=== PATIENT | female | born 1960 | race Caucasian/White ===

== ENCOUNTER 2021-12-04 13:44 | Outpatient (CLI) | payer OTHER, SELFPAY ==
[2021-12-04 14:57] LABS: Basophils % 0.6 %; Eosinophils # 0.2 10^3/uL (0.0-0.8); Eosinophils % 3.3 %; Hematocrit 34.7 % (37.0-47.0); Hemoglobin 9.9 g/dL (11.5-15.3); Lymphocytes # 1.7 10^3/uL (0.8-4.8); Lymphocytes % 24.8 %; Mean Corpuscular HGB Conc 28.5 g/dL (30.0-36.0); Mean Corpuscular Hemoglobin 22.8 pg (28.0-34.0); Mean Corpuscular Volume 79.8 fl (81-99); Mean Platelet Volume 11.8 fL (7.4-10.4); Monocytes # 0.5 10^3/uL (0.2-0.9); Monocytes % 7.7 %; Neutrophils # 4.22 10^3/uL (1.8-7.7); Neutrophils % 63.3 %; Nucleated Red Blood Cells % 0 %; Platelet Count 216 10^3/cmm (130-400); Red Blood Count 4.35 10^6/uL (4.1-5.3); Red Cell Distribution Width 19.1 % (12.1-15.1); White Blood Count 6.7 10^3/uL (4.0-10.0)
[2021-12-04] MEDS: cyanocobalamin 1,000 mcg/mL SDV 1000 MCG IM (16:30)
[2021-12-04 17:17] LABS: Ferritin 8 ng/mL (15-150); Iron 27 ug/dL (37-145); Percent Saturation 7.2 % (20-50); Total Iron Binding Capacity 370 mcg/dl; Unsaturated Iron Binding 343 ug/dL (112-347)
[2021-12-04 17:28] LABS: Vitamin B12 193 pg/mL (232-1245)
--- NOTE | 2021-12-06 17:34 | ONC FU_ITS ---
Dr. Desir follow up note Patient: Svetlana Jackson Unit #: [id number]: 1960 Dicatated By: Kelly Desir M.D.Date of Visit:Dec 04, 2021 Onc Med Follow-up/Prog Note History of Present Illness: Ms. Svetlana jackson, is a 61-year-old female with a history of iron deficiency anemia since teenage, as per patient her mother has history of iron deficiency anemia, now daughter has similar condition requiring iron supplement. She said, she has had tried oral iron supplement many times but recently started causing stomach problems specially diarrhea. She said she tried IV iron once when she broke her left ankle and was admitted to hospital in [facility], does not remember exactly when but said could be 2018 or 20 at that time she was given bag of IV iron and subsequently she developed diarrhea and some sort of skin rash but it was self-limiting. Last colonoscopy was done about 10 years ago, as per patient at that time she had ruptured colon and underwent major surgery and developed multiorgan failure and was deathly sick. And at that time she required multiple blood transfusions and also has history of blood transfusion about 5 years ago, as per patient, at that time she was sick with clements and was not eating much, lost weight and was severely anemic. Patient denies any melena or hematochezia, denies any hemoptysis or hematemesis denies any jaundice occasionally nosebleed but no hematuria or dysuria or dysfunctional uterine bleeding. Patient says she tried oral iron as her lab work-up done and August 2021 showed iron saturation was 5%, iron was 24 TIBC is 474 B12 was 289 ferritin was 3, patient was started on oral iron twice a day and repeat CBC on November 17, 2021 showed ferritin was 5 but then patient developed diarrhea and quit taking oral iron. As per patient she is trying food rich in iron like green vegetables. Patient denies any chest pain or palpitation but she has underlying COPD, quit smoking about 15 years ago, she denies alcohol use Patient has history of blood transfusion Medications: Acetaminophen 1 Tablet (of 500 mg) Oral q 6 hours PRN, Anti-Diarrheal Tablet Oral PRN, Aspirin 1 Tablet (of 325 mg) Oral daily, cloNIDine HCl 1 Tablet (of 0.2 mg) Oral t.i.d., Gabapentin 2 Tablet (of 600 mg) Oral t.i.d., Prevagen 1 Capsule Oral daily, Probiotic 3 Tablet Tablet, enteric coated Oral at bedtime, Sertraline HCl 1 Tablet (of 100 mg) Oral daily, Vitamin C 1 Tablet (of 500 mg) Oral daily, Vitamin D3 1 Tablet Oral daily Allergies: bleach, Iodinated Contrast Media, Iron, Latex, Red kidney pills, and Sulfa Antibiotics. Review of Systems: Review of Systems is not available for this patient. Vital Signs: Performed on Dec 04, 2021 15:41 Height - 59 in Weight - 193.4 lbs (HIGH) BSA - 1.82 sq.m BMI - 39.06 (HIGH) Temperature - 97.4 F (LOW) Pulse - 97 /min Respiration - 16 /min BP - 192/75 mm(hg) (HIGH) O2 Sat - 92 % (LOW) Pain - 0 Fatigue - 5 Performance Status: 1 - No physically strenuous activity, but ambulatory and able to carry out light or sedentary work (e.g. office work, light house work). (ECOG) Physical Examination: ENMT - No mouth sores, no thrush, no jaundice, no cervical lymphadenopathy, Respiratory - Poor air entry otherwise clear, Cardiovascular - Regular rate and rhythm of heart, Abdomen - Soft, bowel sounds present, Extremities - No visible edema. Lab/Imaging: Most recent lab results are not available for this patient. Impression: History of severe iron deficiency anemia since teenage,, etiology could be iron malabsorption, as per patient her mother and her daughter with similar problems or other possibility could be chronic blood loss As per patient colonoscopy was done about 10 years ago at that time there was no evidence of malignancy. Post procedure colon Rupture, requiring laparotomy/surgical repair Status post parenteral iron x1, developed mild rash and diarrhea Status post packed RBCs, 5 years ago and 10 years ago during hospitalizations. History of oral iron supplement on many occasions, recently developed intolerance due to GI symptoms like diarrhea Plan: Discussed with patient regarding her labs white blood count 6.7 hemoglobin 9.9 hematocrit 34.7 platelets 216,000 MCV 79.8 with a normal differential Clinically, patient is doing reasonably well, with well compensated iron deficiency anemia and etiology, most likely iron malabsorption, her B12 level is also low, on the low side of normal whereas folate level was normal At this point, we will repeat her iron studies and patient is reluctant to take parenteral iron and oral iron, patient was showed that there are different types of iron formulation, some of them may not cause any allergic reaction but we will use premedication to minimize risk of allergic reaction, she was also advised to try different formulation of oral iron but patient is reluctant. In that case we will obtain records from hospital in [facility] to see if which iron formulation was given parenterally and will avoid that one. Otherwise we will consider Injectafer 750 mg IV weekly x2 and consider premedication with Tylenol/Benadryl/dexamethasone Patient wants to think about that and she will return to clinic in 1 month in the meantime we will consider parenteral B12 supplement 1000 mcg IM weekly x4 loading dose followed by monthly. Signed By: Kelly Desir M.D. <<Signature on File>>
== END 2021-12-04 13:45 | disposition home or self-care (01) ==
LOC: ONCMED 13:56
PROVIDERS: PCP Nurse Practitioner Family; Visit Provider Internal Medicine Hematology & Oncology
DX: D50.9 Iron deficiency anemia, unspecified (principal); J44.9 Chronic obstructive pulmonary disease, unspecified; Z79.899 Other long term (current) drug therapy; Z87.891 Personal history of nicotine dependence
CPT/HCPCS: 36415; 82607; 82728; 83540; 83550; 85025; 96372; 99205; J3420

== ENCOUNTER 2024-08-15 11:33 | Emergency (ER) | payer OTHER, SELFPAY ==
[2024-08-15] VITALS (19 sets, daily range): BP systolic 92–149; BP diastolic 32–90; PULSE 69–88; RESP 16–19; TEMP 36.4–37.1; O2SAT 91–99
--- NOTE | 2024-08-15 11:35 | CTR_ITS ---
PROCEDURE INFORMATION: Exam: CT Head Without Contrast Exam date and time: 08/15/2024 12:06 PM Age: 63 years old Clinical indication: Altered mental status/memory loss; Confusion or disorientation; Additional info: AMS TECHNIQUE: Imaging protocol: Computed tomography of the head without contrast. Radiation optimization: All CT scans at this facility use at least one of these dose optimization techniques: automated exposure control; mA and/or kV adjustment per patient size (includes targeted exams where dose is matched to clinical indication); or iterative reconstruction. COMPARISON: No relevant prior studies available. RADIATION DOSE METRICS: Total DLP (mGy-cm): 315.28 FINDINGS: Brain: Normal. No hemorrhage. Unremarkable white matter. No mass effect. Cerebral ventricles: No ventriculomegaly. Paranasal sinuses: Visualized sinuses are unremarkable. No fluid levels. Mastoid air cells: Visualized mastoid air cells are well aerated. Bones: Unremarkable. No acute fracture. Soft tissues: Unremarkable. CT/CT head wo con* [id number] IMPRESSION: No large territorial infarct or intracranial bleed.
--- NOTE | 2024-08-15 11:35 | XRR_ITS ---
PROCEDURE INFORMATION: Exam: XR Chest Exam date and time: 08/15/2024 11:50 AM Age: 63 years old Clinical indication: Cough and dyspnea; Additional info: Dyspnea/cough TECHNIQUE: Imaging protocol: Radiologic exam of the chest. Views: 1 view. COMPARISON: No relevant prior studies available. FINDINGS: Lungs: There are right lower lung zone reticular opacities. Pleural spaces: Unremarkable. No pleural effusion. No pneumothorax. Heart/Mediastinum: The heart is enlarged. Vasculature: Aortic arch calcifications. Bones/joints: Mild degenerative disease of bilateral acromioclavicular joints. There are moderate degenerative changes of the glenohumeral joints. XR/XR chest 1V portable [id number] IMPRESSION: Right lower lung zone reticular opacities that can represent atelectasis versus infiltrates.
--- NOTE | 2024-08-15 11:36 | ECG_ITS ---
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 Measurements Intervals [place] Rate: 83 P: -81 IA: 130 QRS: -1 QRSD: 90 T: 112 QT: 362 QTc: 427 Interpretive Statements SINUS RHYTHM NONSPECIFIC ST & T-WAVE ABNORMALITY No previous ECG available for comparison Electronically Signed On 08-17-2024 20:20:57 MATERIAL CONTROL ASSOCIATE by Luiz Dixon M.D. [id number]
[2024-08-15 11:48] LABS: Basophils % 0.2 %; Eosinophils % 0.2 %; Hematocrit 25.3 % (36-47); Lymphocytes # 0.8 10^3/uL (0.8-4.8); Lymphocytes % 7.3 %; Mean Corpuscular HGB Conc 27.7 g/dL (30-55); Mean Corpuscular Hemoglobin 29.4 pg (27-33); Mean Corpuscular Volume 106.3 fl (85-98); Mean Platelet Volume 10.9 fL (7.4-10.4); Monocytes # 0.8 10^3/uL (0.2-0.9); Monocytes % 6.6 %; Neutrophils # 9.64 10^3/uL (1.8-7.7); Neutrophils % 84.9 %; Nucleated Red Blood Cells % 0.2 %; Platelet Count 253 10^3/cmm (157-399); Red Blood Count 2.38 10^6/uL (3.85-5.65); Red Cell Distribution Width 17.2 % (12.1-15.1); White Blood Count 11.35 10^3/uL (3.29-11.43)
--- NOTE | 2024-08-15 11:48 | W.ED.AMS ---
HPI - Altered Mental Status General: Chief Complaint: Altered Mental Status Stated Complaint: ams Time Seen by Provider: 08/15/24 11:35 History of Present Illness: 63-year-old female presents emergency room with altered mental status found by EMS on the floor was unable to get up. Patient is altered as she does make attempts to answer questions but does not answer correctly. Cannot tell me any specific issues she is not sure why she is here. She has a anterior abdominal wall hernia. Does not report any abdominal or chest pain but uncertain as to how well she understands questions specifically. She has vomit across her shirt. Some dried vomit on the face around her mouth. Related Data Home Medications Medication Instructions Recorded Confirmed acidophilus 100 million 100 cap PO DAILY 08/15/24 08/15/24 cell-pectin, citrus 10 mg capsule ascorbic acid (vitamin C) 500 mg 500 mg PO DAILY 08/15/24 08/15/24 tablet (Vitamin C) cholecalciferol (vitamin D3) 25 25 mcg PO DAILY 08/15/24 08/15/24 mcg (1,000 unit) capsule (Vitamin D3) clonidine HCl 0.2 mg tablet 0.2 mg PO TID 08/15/24 08/15/24 gabapentin 600 mg tablet 600 mg PO TID 08/15/24 08/15/24 meclizine 12.5 mg tablet 12.5 mg PO TID PRN Nausea And 08/15/24 08/15/24 Vomiting nliitcnjobhmn-TD-kcrtymddbhbjj 5 15 ml PO QID PRN Cough 08/15/24 08/15/24 mg-10 mg-325 mg/15 mL oral liquid (Daytime Cold-Flu) pravastatin 20 mg tablet 20 mg PO BEDTIME 08/15/24 08/15/24 sertraline 100 mg tablet 200 mg PO DAILY 08/15/24 08/15/24 tramadol 50 mg tablet 50 mg PO QID PRN Pain 08/15/24 08/15/24 vitamin B12 500 mcg-folic acid 400 1 tab PO DAILY 08/15/24 08/15/24 mcg tablet Allergies Allergy/AdvReac Type Severity Reaction Status Date / Time Bleach (Sodium Hypochlorite) Allergy Unknown Unverified 12/26/22 09:56 Iodinated Contrast Media Allergy Unknown Unverified 12/26/22 09:56 iron Allergy Unknown Unverified 12/26/22 09:56 latex Allergy Unknown Unverified 12/26/22 09:56 Sulfa (Sulfonamide Allergy Unknown Unverified 12/26/22 09:56 Antibiotics) Red Kidney Pills Allergy Unknown Uncoded 12/26/22 09:56 Review of Systems General: Reports: ROS unobtainable due to mental status Physical Exam HENMT: COMMON NORMALS: normocephalic and atraumatic HEAD & SCALP: normocephalic and atraumatic Resp: COMMON NORMALS: normal respiratory effort, No retractions, No use of accessory muscles and clear to auscultation bilaterally AUSCULTATION: clear to auscultation bilaterally Cardio: COMMON NORMALS: regular rate, regular rhythm and No murmurs present (Cardio) RATE: regular rate RHYTHM: regular rhythm GI: COMMON NORMALS: Soft to palpation and No hepatosplenomegaly present AUSCULTATION: Yes normoactive bowel sounds PALPATION: Yes Soft to palpation, No Tenderness to palpation present (GI), No Guarding due to palpation present (GI) and Yes No hepatosplenomegaly present Extremity: COMMON NORMALS: normal to inspection, capillary refill normal, no clubbing, cyanosis or edema, no calf tenderness and no pedal edema Skin: COMMON NORMALS: no rashes or lesions noted GENERAL SKIN EXAM: no rashes or lesions noted Course Vital Signs: Vital signs: Vital Signs Temperature 98.5 F 08/15/24 15:44 Pulse Rate 83 08/15/24 15:44 Respiratory Rate 18 08/15/24 15:44 Blood Pressure 130/50 08/15/24 15:44 Pulse Oximetry 94 08/15/24 15:44 Oxygen Delivery Me thod Nasal Cannula 08/15/24 14:52 Oxygen Flow Rate 1 08/15/24 14:52 MDM - Altered Mental Status Medical Decision Making Bilateral obstructing ureteral stones with acute kidney injury. Will transfer to [place]. Dr. Kahn is receiving Dr. Ralph will see the patient to place stents. Patient has been started on antibiotics cultures done. discussed with the patient's . Medical Records I reviewed the patient's medical records. Lab Data I reviewed the patient's lab results. 08/15/24 10:20 08/15/24 10:20 Radiology Impressions Chest X-Ray 08/15/24 11:35 IMPRESSION: Right lower lung zone reticular opacities that can represent atelectasis versus infiltrates. Head CT 08/15/24 11:35 IMPRESSION: No large territorial infarct or intracranial bleed. Abdomen/Pelvis CT 08/15/24 13:48 IMPRESSION: Bilateral obstructing ureter stones measuring 1.6 cm in the proximal left ureter and 1 cm in the distal right ureter with bilateral severe proximal hydroureteronephrosis Laboratory Results WBC 11.35 10^3/uL (3.29-11.43) 08/15/24 10:20 RBC 2.38 10^6/uL (3.85-5.65) L 08/15/24 10:20 Hgb 7.00 g/dL (11.27-16.99) L 08/15/24 10:20 Hct 25.3 % (36-47) L 08/15/24 10:20 MCV 106.3 fl (85-98) H 08/15/24 10:20 MCH 29.4 pg (27-33) 08/15/24 10:20 MCHC 27.7 g/dL (30-55) L 08/15/24 10:20 RDW 17.2 % (12.1-15.1) H 08/15/24 10:20 Plt Count 253 10^3/cmm (157-399) 08/15/24 10:20 MPV 10.9 fL (7.4-10.4) H 08/15/24 10:20 Neut % (Auto) 84.9 % 08/15/24 10:20 Lymph % (Auto) 7.3 % 08/15/24 10:20 [place] % (Auto) 6.6 % 08/15/24 10:20 Eos % (Auto) 0.2 % 08/15/24 10:20 Baso % (Auto) 0.2 % 08/15/24 10:20 Neut # (Auto) 9.64 10^3/uL (1.8-7.7) H 08/15/24 10:20 Lymph # (Auto) 0.8 10^3/uL (0.8-4.8) 08/15/24 10:20 [place] # (Auto) 0.8 10^3/uL (0.2-0.9) 08/15/24 10:20 Eos # (Auto) 0.0 10^3/uL (0.0-0.8) 08/15/24 10:20 Baso # (Auto) 0.0 10^3/uL (0.0-0.1) 08/15/24 10:20 Nucleated RBC % (auto) 0.2 % 08/15/24 10:20 Nucleated RBCs # 0.0 /100WBC 08/15/24 10:20 Specimen Type Arterial 08/15/24 12:35 Sample Site Radial, right 08/15/24 12:35 ABG pCO2 37.0 mmHg (35-45) 08/15/24 12:35 ABG pO2 125.0 mmHg (80.0-100.0) H 08/15/24 12:35 ABG PO2/FiO2 Ratio 390 08/15/24 12:35 ABG HCO3 12.6 mmol/L (22-26) L 08/15/24 12:35 ABG O2 Saturation 97.3 08/15/24 12:35 ABG Base Excess -15.2 mmol/L (-2.0-2.0) L 08/15/24 12:35 Mika Test Pos 08/15/24 12:35 A-a O2 Gradient 7.6 mmHg (5-10) 08/15/24 12:35 Hematocrit 21.6 % (37-47) L 08/15/24 12:35 Hgb O2 Saturation 93.9 % (95-100) L 08/15/24 12:35 Carboxyhemoglobin 1.1 %THgb (0.4-20.1) 08/15/24 12:35 Methemoglobin 2.3 % (0.4-1.5) H 08/15/24 12:35 Total Hemoglobin 7.0 g/dL (12-16) L 08/15/24 12:35 Sodium 146.0 mmol/L (131-143) H 08/15/24 12:35 Potassium 3.2 mmol/L (3.5-5.0) L 08/15/24 12:35 Glucose 84.0 mg/dL (70-115) 08/15/24 12:35 Ionized Calcium 1.2 mmol/L (1.1-1.4) 08/15/24 12:35 O2 Delivery Device Nc 08/15/24 12:35 O2 Liters/Min 3.0 % 08/15/24 12:35 FiO2 32.0 % 08/15/24 12:35 Merchandise Collector ID Gd 08/15/24 12:35 Sodium 142 mmol/L (136-145) 08/15/24 10:20 Potassium 3.4 mmol/L (3.5-5.1) L 08/15/24 10:20 Chloride 105 mmol/L (98-107) 08/15/24 10:20 Carbon Dioxide 13 mmol/L (22-29) L 08/15/24 10:20 Anion Gap 27.4 (5-19) H 08/15/24 10:20 BUN 48 mg/dL (8-23) H 08/15/24 10:20 Creatinine 4.7 mg/dL (0.5-0.9) H 08/15/24 10:20 GFR Calculation 9.4 mL/min (90-130) L 08/15/24 10:20 Glucose 83 mg/dL (65-115) 08/15/24 10:20 Calculated Osmolality 306 mOsm/kg (285-295) H 08/15/24 10:20 Lactic Acid 0.9 mmol/L (0.5-2.2) 08/15/24 12:21 Calcium 8.8 mg/dL (8.5-10.5) 08/15/24 10:20 Magnesium 2.0 mg/dL (1.7-2.3) 08/15/24 10:20 Total Bilirubin 0.4 mg/dL (0.15-1.2) 08/15/24 10:20 AST 29 U/L (0-32) 08/15/24 10:20 ALT 13 U/L (0-33) 08/15/24 10:20 Alkaline Phosphatase 86 U/L (35-105) 08/15/24 10:20 Troponin T Baseline 60 ng/L (0-10) H 08/15/24 10:20 Troponin T 120 Minute 56.88 ng/L (0-10) H 08/15/24 12:21 Delta Troponin T -3.12 ABS# (0-10) L 08/15/24 12:21 Total Protein 6.4 g/dL (6.6-8.7) L 08/15/24 10:20 Albumin 3.7 g/dL (3.5-5.2) 08/15/24 10:20 Globulin 2.7 g/dL (1.3-4.6) 08/15/24 10:20 Lipase 58 U/L (13-60) 08/15/24 10:20 Urine Color Yellow (Yellow) 08/15/24 13:04 Urine Appearance Cloudy (CLEAR) A 08/15/24 13:04 Urine pH 5.0 (5-7) 08/15/24 13:04 Ur Specific [place] 1.017 (1.005-1.030) 08/15/24 13:04 Urine Protein 1+ (Negative) A 08/15/24 13:04 Urine Glucose (UA) Negative (Normal) 08/15/24 13:04 Urine Ketones Negative (Negative) 08/15/24 13:04 Urine Blood 3+ (Negative) A 08/15/24 13:04 Urine Nitrate Negative (Negative) 08/15/24 13:04 Urine Bilirubin Negative (Negative) 08/15/24 13:04 Urine Urobilinogen 0.2 mg/dL (Negative) 08/15/24 13:04 Ur Leukocyte Esterase 1+ (Negative) A 08/15/24 13:04 Urine RBC 51-100 /hpf (0-2) H 08/15/24 13:04 Urine WBC 6-10 /hpf (0-5) 08/15/24 13:04 Ur Squamous Epith Cells 0-5 /hpf (0-5) 08/15/24 13:04 Amorphous Sediment Not Reportable 08/15/24 13:04 Urine Bacteria None seen /hpf (NONE) 08/15/24 13:04 Hyaline Casts 2.46 /lpf 08/15/24 13:04 Serum Ketones Negative (Negative) 08/15/24 12:21 Coronavirus (PCR) Negative (Negative) 08/15/24 13:04 Influenza A (PCR) Negative (Negative) 08/15/24 13:04 Influenza Type B (PCR) Negative (Negative) 08/15/24 13:04 RSV (PCR) Negative (Negative) 08/15/24 13:04 Blood Type A Positive 08/15/24 13:11 Rho(D) Type Rh positive 08/15/24 13:11 Antibody Screen Negative 08/15/24 13:11 Crossmatch See Detail 08/15/24 13:11 All radiology interpretation(s) finalized by discharge Discharge Plan Discharge Patient Disposition: Xfer Short-Term Hosp Clinical Impression: Obstructive pyelonephritis, Delirium due to general medical condition, Acute kidney injury, Anemia, macrocytic Condition: Stable Prescriptions: No Action gabapentin 600 mg tablet 600 mg PO TID clonidine HCl 0.2 mg tablet 0.2 mg PO TID ascorbic acid (vitamin C) [Vitamin C] 500 mg Tablet 500 mg PO DAILY cholecalciferol (vitamin D3) [Vitamin D3] 25 mcg (1,000 unit) Capsule 25 mcg PO DAILY acidophilus-pectin, citrus [Acidophilus Probiotic] 100 million cell-10 mg Capsule 100 cap PO DAILY vitamin V63-tsyks acid 500-400 mcg Tablet 1 tab PO DAILY Rx Instructions: administer with a meal sertraline 100 mg tablet 200 mg PO DAILY meclizine 12.5 mg tablet 12.5 mg PO TID PRN (Reason: Nausea And Vomiting) tramadol 50 mg tablet 50 mg PO QID PRN (Reason: Pain) pravastatin 20 mg tablet 20 mg PO BEDTIME Daytime Cold-Flu 5-10-325 mg/15 mL Liquid 15 ml PO QID PRN (Reason: Cough) Referrals: Kinga Randall FNP [Primary Care Provider] - Patient Instructions: Altered Mental Status (ED) Coding Level of Care Code 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
[2024-08-15 12:10] LABS: Troponin(5th) Baseline 60 ng/L (0-10)
[2024-08-15 12:11] LABS: Alanine Aminotransferase 13 U/L (0-33); Albumin Level 3.7 g/dL (3.5-5.2); Alkaline Phosphatase 86 U/L (35-105); Anion Gap 27.4 (5-19); Aspartate Amino Transferase 29 U/L (0-32); Blood Urea Nitrogen 48 mg/dL (8-23); Calcium 8.8 mg/dL (8.5-10.5); Carbon Dioxide 13 mmol/L (22-29); Chloride 105 mmol/L (98-107); Globulin 2.7 g/dL (1.3-4.6); Glomerular Filtration Rate 9.4 mL/min (90-130); Glucose 83 mg/dL (65-115); Osmolality Calculated 306 mOsm/kg (285-295); Potassium 3.4 mmol/L (3.5-5.1); Sodium 142 mmol/L (136-145); Total Bilirubin 0.4 mg/dL (0.15-1.2); Total Protein 6.4 g/dL (6.6-8.7)
[2024-08-15 12:19] LABS: Lipase 58 U/L (13-60)
[2024-08-15 12:57] LABS: Lactic Sepsis W/Reflex 0.9 mmol/L (0.5-2.2)
[2024-08-15 12:57] LABS: Blood Gas Allen Test Pos; Blood Gas Sample Site Radial, right; Blood Gas Sample Type Arterial; HCO3 ABG 12.6 mmol/L (22-26); Ionized Calcium Level - ABG 1.2 mmol/L (1.1-1.4); Potassium Level - ABG 3.2 mmol/L (3.5-5.0)
[2024-08-15 12:58] LABS: Arterial Blood Gas Hematocrit 21.6 % (37-47); Base Excess ABG -15.2 mmol/L (-2.0-2.0); Carboxyhemoglobin 1.1 %THgb (0.4-20.1); HGB O2 Sat 93.9 % (95-100); Methemoglobin 2.3 % (0.4-1.5); Oxygen Saturation ABG 97.3; PO2 FiO2 Ratio Arterial Blood 390
[2024-08-15 12:58] LABS: Troponin 5 2HR 56.88 ng/L (0-10); Troponin 5 2HR Delta -3.12 ABS# (0-10)
[2024-08-15 12:59] LABS: Alveolar-Arterial Oxygen Gradi 7.6 mmHg (5-10); Blood Gas Operator Identificat GD; Oxygen Device NC
[2024-08-15 13:32] LABS: Bilirubin Urine Negative (Negative); Blood Urine 3+ (Negative); Glucose Urine UA Negative (Normal); Ketones Urine Negative (Negative); Leukocyte Esterase Urine 1+ (Negative); Nitrate Urine Negative (Negative); Protein Urine 1+ (Negative); Specific Gravity, Urine 1.017 (1.005-1.030); Urine Appearance Cloudy (CLEAR); Urine Color Yellow (Yellow); Urobilinogen Urine 0.2 mg/dL (Negative)
[2024-08-15 13:36] LABS: Add Urine Microscopic? YES; Bacteria Urine None Seen /hpf; Hyaline Casts Urine 2.46 /lpf; RBC Urine 51-100 /hpf (0-2); Squamous Epithelial Cell Urine 0-5 /hpf (0-5)
[2024-08-15 13:42] LABS: Add Urine Culture? Yes
--- NOTE | 2024-08-15 13:47 | ECG_ITS ---
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 Measurements Intervals [place] Rate: 68 P: -74 [place]: 134 QRS: -5 QRSD: 93 T: 47 QT: 425 QTc: 453 Interpretive Statements SINUS RHYTHM NONSPECIFIC ST & T-WAVE ABNORMALITY Compared to ECG 08/15/2024 12:59:55 No significant changes Electronically Signed On 08-17-2024 20:34:02 BUNDLE SHAKER by Luiz Dixon M.D. [id number]
--- NOTE | 2024-08-15 13:48 | CTR_ITS ---
PROCEDURE INFORMATION: Exam: CT Abdomen And Pelvis Without Contrast Exam date and time: 08/15/2024 2:04 PM Age: 63 years old Clinical indication: Other: Hematuria TECHNIQUE: Imaging protocol: Computed tomography of the abdomen and pelvis without contrast. Radiation optimization: All CT scans at this facility use at least one of these dose optimization techniques: automated exposure control; mA and/or kV adjustment per patient size (includes targeted exams where dose is matched to clinical indication); or iterative reconstruction. COMPARISON: CR (CHEST, ) 08/15/2024 11:50 AM RADIATION DOSE METRICS: Total DLP (mGy-cm): 720.47 FINDINGS: Lungs: Nonspecific bibasilar consolidation is present, consistent with atelectasis, edema, or pneumonia. Heart: Decreased density of the blood pool when compared to the ventricular wall, suggestive of anemia. Coronary arteries: There is severe atherosclerotic calcification of the coronary arteries. Liver: Normal. No mass. Gallbladder and biliary ducts: Normal. No calcified stones. No ductal dilation. Pancreas: Normal. No ductal dilation. Spleen: There are multiple calcified granulomas of the spleen. Adrenal glands: Normal. No mass. Kidneys and ureters: There is a 1.6 cm obstructing stone in the left proximal ureter with severe left proximal hydroureteronephrosis. Few nonobstructing stones in the left kidney. There is cortical thinning of the left kidney. There is a 1 cm obstructing stone in the distal right ureter with severe proximal right hydroureteronephrosis. Bilateral perinephric fat stranding. Stomach and bowel: Unremarkable. No obstruction. No mucosal thickening. Appendix: No evidence of appendicitis. Intraperitoneal space: There is a small amount of free intraperitoneal fluid present. Vasculature: Calcified atheromas of the visualized arteries. There are numerous benign phleboliths in the pelvis. Lymph nodes: Unremarkable. No enlarged lymph nodes. Urinary bladder: Unremarkable as visualized. Reproductive: Unremarkable as visualized. Bones/joints: There is mild curvature of the lumbar spine convex to the right. The pubic symphysis demonstrates mild degenerative changes. There are mild degenerative changes of the hip joints. There are mild degenerative changes of the sacroiliac joints. Bilateral L4-L5 facet joint arthropathy with mild anterolisthesis of L4 over L5. The lumbar spine demonstrates mild degenerative changes at multiple levels. Soft tissues: There is dehiscence of the anterior abdominal wall. CT/CT kidney stone [id number] IMPRESSION: Bilateral obstructing ureter stones measuring 1.6 cm in the proximal left ureter and 1 cm in the distal right ureter with bilateral severe proximal hydroureteronephrosis
[2024-08-15] MEDS: sodium chloride 0.9% 1,000 ML 999 ML IV (14:00)
[2024-08-15 14:10] LABS: Covid PCR NEGATIVE (Negative); Influenza A NEGATIVE (Negative); Influenza B NEGATIVE (Negative); Respiratory Syncytial Virus Ce NEGATIVE (Negative)
[2024-08-15 14:11] LABS: Ketone (Acetest) Serum Negative (Negative)
[2024-08-15] MEDS: piperacillin-tazobactam 2.25 GM in sodium chloride 0.9% (plus) 50 ML IV (14:22)
--- NOTE | 2024-08-15 17:36 | ECG_ITS ---
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 Measurements Intervals [place] Rate: 79 P: -87 [place]: 105 QRS: -7 QRSD: 89 T: 73 QT: 400 QTc: 459 Interpretive Statements SINUS RHYTHM WITH OCCASIONAL SUPRAVENTRICULAR PREMATURE COMPLEXES NONSPECIFIC T-WAVE ABNORMALITY ABNORMAL RHYTHM ECG Compared to ECG 08/15/2024 13:47:08 No significant changes Electronically Signed On 08-17-2024 20:33:16 VEGETABLE TIER by Luiz Dixon M.D. [id number]
[2024-08-15 23:41] LABS: ABG PH Result 7.14 (7.35-7.45)
== END 2024-08-15 21:45 | disposition short-term general hospital (02) ==
PROVIDERS: Emergency Provider Family Medicine; PCP Nurse Practitioner Family
DX: N12 Tubulo-interstitial nephritis, not specified as acute or chronic (principal); F05 Delirium due to known physiological condition; N17.9 Acute kidney failure, unspecified; D53.9 Nutritional anemia, unspecified; Z11.52 Encounter for screening for COVID-19
CPT/HCPCS: 0241U; 36415; 36430; 36600; 51702; 70450; 71045; 74176; 80051; 80053; 81001; 82009; 82330; 82805; 83605; 83690; 83735; 84484; 85025; 86850; 86900; 86920; 87040; 87077; 87086; 87186; 93005; 96374; 99285; J2543; J7030; P9016